=== PATIENT | female | born 1965 | race Caucasian/White ===

== ENCOUNTER 2017-06-08 17:23 | Emergency (ER) | payer OTHER ==
[~2017-06-08] VITALS: Ht 162.6 cm; Wt 113.0 kg
[~2017-06-08 17:23] MED LIST: BUPR150T3 PO; BUTA1CAP PO; DIAZ10TA PO; IBUP-232 PO; KLOR20TA6 PO; LASI20TA PO; LIDO5DIS35 TD; LISI-360 PO; MORP60TA20 PO; PRAV40TA PO; ROXI5SOL2 PO; SOMA350T PO; SSD1CRE TOP; VENTAER INH
[2017-06-08 17:28] VITALS: BP 123/67; PULSE 93; RESP 16; TEMP 98.4; O2SAT 99
[2017-06-08] MEDS ORDERED: BUPR150T3 (17:51)
[2017-06-08] MEDS ORDERED: FURO1TAB60 PO (17:51)
[2017-06-08] MEDS ORDERED: PRAV20TA2 PO (17:51)
[2017-06-08] MEDS ORDERED: MORP1TAB26 PO (17:51)
[2017-06-08] MEDS ORDERED: POTA1TAB4 PO (17:51)
[2017-06-08] MEDS ORDERED: BUTA1CAP PO (17:51)
[2017-06-08] MEDS ORDERED: LISI-515 PO (17:51)
[2017-06-08] MEDS ORDERED: CYCL10TA PO (17:51)
[2017-06-08] MEDS ORDERED: ROXI30TA14 PO (17:51)
[2017-06-08] MEDS ORDERED: DIAZ10TA PO (17:51)
[2017-06-08] MEDS ORDERED: MECLIZINE HCL 25 MG TAB PO ONE ×2 (18:15→22:45)
[2017-06-08] MEDS ORDERED: ONDANSETRON HCL 4 MG/2 ML VIAL IV PUSH ONE (18:15)
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
[2017-06-08 19:32] VITALS: BP 114/55; PULSE 82; RESP 16; O2SAT 98
[2017-06-08 20:19] LABS: CHLORIDE 105 MEQ/L (98-107); SODIUM (NA) 138 MEQ/L (136-145)
[2017-06-08 20:23] LABS: CALCIUM 7.8 MG/DL (8.5-10.1)
[2017-06-08 20:24] LABS: ALBUMIN 3.2 GM/DL (3.4-5.0); BICARBONATE 25.8 MEQ/L (21.0-32.0); BLOOD UREA NITROGEN 9 MG/DL (7-18); GLUCOSE,RANDOM 78 MG/DL (74-106)
[2017-06-08 20:26] LABS: ALT (GPT) 13 U/L (10-53); AST (GOT) 21 U/L (15-37); GLOMERULAR FILTRATION RATE 58 ML/MIN (>89)
[2017-06-08 20:27] LABS: TOTAL BILIRUBIN ADULT 0.2 MG/DL (0.2-1.0); TOTAL PROTEIN 7.2 GM/DL (6.4-8.2)
[2017-06-08 20:28] LABS: ALKALINE PHOSPHATASE 97 U/L (45-117)
[2017-06-08 20:57] LABS: AUTOMATED NEUTROPHIL # 3.3 TH/MM3 (1.8-7.7); BASOPHIL # 0.1 TH/MM3 (0-0.2); BASOPHIL % 0.8 % (0.0-2.0); EOSINOPHIL # 0.5 TH/MM3 (0-0.4); EOSINOPHIL % 6.7 % (0.0-4.0); HEMATOCRIT 35.3 % (35.0-46.0); HEMOGLOBIN 12.1 GM/DL (11.6-15.3); LYMPH % 44.7 % (9.0-44.0); LYMPHOCYTE # 3.3 TH/MM3 (1.0-4.8); MEAN CELL VOLUME 91.9 FL (80.0-100.0); MEAN CORPUSCULAR HEMOGLOBIN 31.6 PG (27.0-34.0); MEAN CORPUSCULAR HGB CONC 34.4 % (32.0-36.0); MEAN PLATELET VOLUME 8.1 FL (7.0-11.0); MONO % 4.9 % (0.0-8.0); MONOCYTE # 0.4 TH/MM3 (0-0.9); NEUT % 42.9 % (16.0-70.0); PLATELET COUNT 209 TH/MM3 (150-450); RED BLOOD COUNT 3.84 MIL/MM3 (4.00-5.30); RED CELL DISTRIBUTION WIDTH 13.4 % (11.6-17.2); WHITE BLOOD COUNT 7.6 TH/MM3 (4.0-11.0)
[2017-06-08 22:07] VITALS: BP 111/64; PULSE 68; RESP 16; O2SAT 98
--- NOTE | 2017-06-08 22:30 | PD ---
Physical Exam Time Seen by Provider: 22:[address] Rayo left this patient with me to check the results of the imaging and likely discharge if normal. Data Data Last Documented VS Vital Signs Date Time Temp Pulse Resp B/P (MAP) Pulse Ox O2 Delivery O2 Flow Rate FiO2 06/08/17 22:07 68 16 111/64 (80) 98 Room Air 06/08/17 17:28 98.4 Orders Orders Complete Blood Count With Diff (06/08/17 18:09) Comprehensive Metabolic Panel (06/08/17 18:09) Lipase (06/08/17 18:09) Thyroid Stimulating Hormone (06/08/17 18:09) Ct Brain W/O Iv Contrast(Rout) (06/08/17 18:09) Iv Access Insert/Monitor (06/08/17 18:09) Ecg Monitoring (06/08/17 18:09) Oximetry (06/08/17 18:09) Alcohol (Ethanol) (06/08/17 18:09) Ondansetron Inj (Zofran Inj) (06/08/17 18:15) Meclizine (Antivert) (06/08/17 18:15) Ct Cerv Spine W/O Contrast (06/08/17 18:09) Labs Laboratory Tests Test 06/08/17 19:55 06/08/17 20:43 Blood Urea Nitrogen 9 MG/DL Creatinine 1.00 MG/DL Random Glucose 78 MG/DL Total Protein 7.2 GM/DL Albumin 3.2 GM/DL Calcium Level 7.8 MG/DL Alkaline Phosphatase 97 U/L Aspartate Amino Transf (AST/SGOT) 21 U/L Alanine Aminotransferase (ALT/SGPT) 13 U/L Total Bilirubin 0.2 MG/DL Sodium Level 138 MEQ/L Potassium Level 4.1 MEQ/L Chloride Level 105 MEQ/L Carbon Dioxide Level 25.8 MEQ/L Anion Gap 7 MEQ/L Estimat Glomerular Filtration Rate 58 ML/MIN Lipase 63 U/L Thyroid Stimulating Hormone 3rd Gen 1.810 uIU/ML Ethyl Alcohol Level LESS THAN 3 MG/DL White Blood Count 7.6 TH/MM3 Red Blood Count 3.84 MIL/MM3 Hemoglobin 12.1 GM/DL Hematocrit 35.3 % Mean Corpuscular Volume 91.9 FL Mean Corpuscular Hemoglobin 31.6 PG Mean Corpuscular Hemoglobin Concent 34.4 % Red Cell Distribution Width 13.4 % Platelet Count 209 TH/MM3 Mean Platelet Volume 8.1 FL Neutrophils (%) (Auto) 42.9 % Lymphocytes (%) (Auto) 44.7 % Monocytes (%) (Auto) 4.9 % Eosinophils (%) (Auto) 6.7 % Basophils (%) (Auto) 0.8 % Neutrophils # (Auto) 3.3 TH/MM3 Lymphocytes # (Auto) 3.3 TH/MM3 Monocytes # (Auto) 0.4 TH/MM3 Eosinophils # (Auto) 0.5 TH/MM3 Basophils # (Auto) 0.1 TH/MM3 CBC Comment DIFF FINAL Differential Comment [facility] Medical Record Reviewed: Yes Supervised Visit with DELFIN: No Interpretation(s) The CBC is normal. The complete metabolic profile shows a GFR 58, calcium 7.8, albumen 3.2 but is otherwise normal. The lipase and TSH are normal. The alcohol level was essentially 0. Diagnosis Primary Impression: Postconcussion syndrome Additional Instruction: The patient appears to have a postconcussion syndrome. She should avoid stressing on the brain such as watching prolonged TV, video games and certainly abstain from any physical contact sports. One of her more prominent symptoms as vertigo and she will be given meclizine for this. Med/Other Pt SpecificInfo: Prescription(s) given Scripts Meclizine (Meclizine) 25 Mg Tab 25 MG PO TID Y for VERTIGO, #45 TAB 0 Refills Prov: Nayan De Santiago MD 06/08/17 Disposition: 01 DISCHARGE HOME Condition: Stable Nayan De Santiago MD Jun 08, 2017 22:30
[2017-06-08] MEDS ORDERED: MECL-62 PO (22:42)
== END 2017-06-08 23:03 | disposition home or self-care (01) ==
LOC: PHED 17:23
DX: F07.81 Postconcussional syndrome (principal); M47.9 Spondylosis, unspecified; E78.00 Pure hypercholesterolemia, unspecified; I10 Essential (primary) hypertension; K21.9 Gastro-esophageal reflux disease without esophagitis; M79.7 Fibromyalgia; M16.10 Unilateral primary osteoarthritis, unspecified hip; V49.9XXA Car occupant (driver) (passenger) injured in unspecified traffic accident, initial encounter; Z79.899 Other long term (current) drug therapy
CPT/HCPCS: 70450; 72125; 80053; 80307; 83690; 84443; 85025; 96374; 99284; J2405